=== PATIENT | male | born 1970 | race Caucasian/White ===

== ENCOUNTER → 2019-08-26 | Outpatient (CLI) | payer BC, MEDICAID ==
[~2019-08-26] MED LIST: CONRAY-43 43% 50ML VIAL (Q9960) As Ordered ONE; PROHANCE 279.3MG/ML 5ML VIAL (A9576) As Ordered ONE
--- NOTE | 2019-08-26 09:23 | REP ---
MRI lumbar spine: 08/26/2019. Indication: Low back pain. Comparison: None. Technique: Multiplanar short and long TR sequences of the lumbar spine were obtained without IV Gadolinium. Findings: Vertebral body alignment is within anatomical limits. There is a small interosseous hemangioma centrally within the T1 vertebral body. The visualized cord is unremarkable. Disc dessication and disc space narrowing are present at L1/L2, L3/L4 and L5/S1. L1/L2: Diffuse disc bulge is present without significant spinal canal or neural foraminal narrowing. L2/L3: Unremarkable. L3/L4: Diffuse disc and spur complex is present with mild spinal canal and mild to moderate bilateral neural foraminal narrowing. Mild bilateral facet arthropathy is present. L4/L5: Diffuse disc bulge is present with mild spinal canal and moderate bilateral neural foraminal narrowing. Mild bilateral facet arthropathy is present. L5/S1: Diffuse disc and spur complex is present with bilateral facet arthropathy. There is mild spinal canal narrowing. Moderate left greater than right neural foraminal narrowing is present. 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 Electronically Signed by Grey Goncalves DO 08/26/2019 09:15 A
--- NOTE | 2019-08-26 11:00 | REP ---
MR ARTHROGRAM LEFT HIP: TECHNIQUE: Coronal T1, STIR through the pelvis, post arthrogram axial T1 fat sat, T2 fat sat, coronal T1 fat sat, T2 fat sat, sagittal T1 fat sat, axial oblique T1 fat sat left hip. The visualized osseous structures demonstrate normal bone marrow signal. There is no bone marrow edema of occult fracture. There is no evidence of avascular necrosis. I do not see evidence of a labral tear. There is no paralabral cyst. Surrounding soft tissue structures of the left hip demonstrate no abnormality. Visualized intrapelvic structures are unremarkable. IMPRESSION: Negative MR arthrogram left hip. Electronically Signed by Fan Rasmussen MD 08/26/2019 11:24 A
--- NOTE | 2019-08-27 14:41 | REP ---
LEFT HIP ARTHROGRAM The procedure was performed under the direction supervision of Dr. Rasmussen. The benefits and risks including but not limited to pain, infection, bleeding and anaphylaxis were explained to the patient and informed consent was obtained. The left femoral neck was localized using fluoroscopic guidance. Skin was prepped and draped in a sterile fashion. 1% lidocaine was used as a local anesthetic. Using fluoroscopic guidance a 22 gauge spinal needle was inserted and advanced to the femoral neck. 0.5 ml of Conray 43 was injected to verify placement. 11 ml of a solution containing 20 ml of sterile saline and 0.15 ml of ProHance was injected into the joint. The needle was removed and the patient was taken to MRI for postprocedural imaging. The patient tolerated the procedure well and there were no immediate complications. Less than 6 seconds of fluoro time was utilized for this procedure. Electronically Signed by GROVER Faria 08/26/2019 05:00 P Electronically Signed by Fan Rasmussen MD 08/27/2019 02:32 P
== END ==
LOC: M RADPRO 06:42
PROVIDERS: ATTEND Physician Assistant
DX: M25.552 Pain in left hip (principal); M51.36 Other intervertebral disc degeneration, lumbar region
CPT/HCPCS: 27093; 72148; 73723; 77002; A9576; Q9960

== ENCOUNTER → 2020-06-02 | Outpatient (CLI) | payer BC, OTHER ==
[~2020-06-02] MED LIST changes: +ACET650T15 PO; -CONRAY-43 43% 50ML VIAL (Q9960) As Ordered ONE; +DICL1GEL3 TOP; +GABA600T4 PO; +OMEP20TA17 PO; -PROHANCE 279.3MG/ML 5ML VIAL (A9576) As Ordered ONE; +TRAM50TA2 PO
[2020-07-08 12:49] LABS: PLATELET COUNT, AUTOMATED 292 10^3/uL (150-450)
[2020-07-08 13:24] LABS: INR 0.99; PROTHROMBIN TIME 13.3 SECONDS (11.8-14.0)
== END ==
LOC: M LAB 11:50
PROVIDERS: ATTEND Physical Medicine & Rehabilitation
DX: R19.4 Change in bowel habit (principal)

== ENCOUNTER → 2020-06-02 | Outpatient (CLI) | payer BC, OTHER ==
[2020-07-08 16:08] LABS: BASO # 0.1 10^3/uL (0.0-0.2); EOS % 0.3 % (0.0-3.0); HEMATOCRIT 48.2 % (42.0-52.0); HEMOGLOBIN 16.1 g/dl (13.5-17.5); MEAN CORPUSCULAR HEMOGLOBIN 30.5 pg (27.0-33.0); MEAN CORPUSCULAR HGB CONC 33.4 g/dl (32.0-36.5); MEAN CORPUSCULAR VOLUME 91.3 fl (80.0-96.0); MONO # 0.6 10^3/uL (0.0-0.8); MONO % 8.9 % (0.0-5.0); NEUTROPHILS # 3.6 10^3/uL (1.5-8.5); NEUTROPHILS % 57.6 % (36.0-66.0); PLATELET COUNT, AUTOMATED 290 10^3/uL (150-450); RED BLOOD COUNT 5.28 10^6/uL (4.30-6.10); WHITE BLOOD COUNT 6.3 10^3/uL (4.0-10.0)
[2020-07-30 16:07] LABS: ALT/SGPT 58 U/L (12-78); AMYLASE 47 U/L (25-115); BILIRUBIN,TOTAL 0.3 MG/DL (0.2-1.0); BLOOD UREA NITROGEN 25 MG/DL (7-18); CALCIUM LEVEL 8.7 MG/DL (8.5-10.1); CARBON DIOXIDE LEVEL 29 MEQ/L (21-32); CHLORIDE LEVEL 107 MEQ/L (98-107); CREATININE FOR GFR 1.13 MG/DL (0.70-1.30); FREE T4 1.07 NG/DL (0.76-1.46); GLOMERULAR FILTRATION RATE > 60.0 (>56); GLUCOSE, FASTING 103 MG/DL (70-100); LIPASE 136 U/L (73-393); POTASSIUM SERUM 4.7 MEQ/L (3.5-5.1); SODIUM LEVEL 139 MEQ/L (136-145); TOTAL PROTEIN 7.4 GM/DL (6.4-8.2)
== END ==
LOC: M LAB 11:50
PROVIDERS: ATTEND Physician Assistant Medical
DX: R19.4 Change in bowel habit (principal)

== ENCOUNTER → 2020-06-08 | Outpatient (REF) | payer BC, OTHER | LOC: M LAB REF 11:47 | PROVIDERS: ATTEND Physician Assistant Medical | DX: R19.4 Change in bowel habit (principal) ==

== ENCOUNTER 2020-08-04 10:56 | Day surgery (SDC) | payer OTHER ==
[~2020-08-04] VITALS: Ht 180.3 cm; Wt 92.1 kg
[~2020-08-04 10:56] MED LIST changes: +NS 1,000 ML IV ONE
[2020-08-04] MEDS ORDERED: propofoL 200 MG/20 ML VIAL As Ordered ONE (13:45)
[2020-08-04] MEDS ORDERED: LIDOCAINE 2% 100MG/5ML SDV (FOR ANES.) As Ordered ONE (13:46)
[2020-08-04 14:35] VITALS: BP 126/78
--- NOTE | 2020-08-04 14:57 | ROOR ---
Patient Name: Sheng Sousa Procedure Date: 08/04/2020 1:37 PM Date of : 1970 Age: 49 Room: [facility] Gender: Male Note Status: Finalized Procedure: Colonoscopy Indications: Screening for colorectal malignant neoplasm Providers: Jeronimo Mills MD Referring MD: Lynnette Barksdale NP Requesting Provider: Medicines: Monitored Anesthesia Care Complications: No immediate complications. Procedure: Pre-Anesthesia Assessment: - Prior to the procedure, a History and Physical was performed, and patient medications and allergies were reviewed. The patient is competent. The risks and benefits of the procedure and the sedation options and risks were discussed with the patient. All questions were answered and informed consent was obtained. Patient identification and proposed procedure were verified by the physician, the nurse and the anesthesiologist in the procedure room. Mental Status Examination: alert and oriented. Airway Examination: normal oropharyngeal airway and neck mobility. Respiratory Examination: clear to auscultation. CV Examination: normal. Prophylactic Antibiotics: The patient does not require prophylactic antibiotics. Prior Anticoagulants: The patient has taken no previous anticoagulant or antiplatelet agents. ASA Grade Assessment: II - A patient with mild systemic disease. After reviewing the risks and benefits, the patient was deemed in satisfactory condition to undergo the procedure. The anesthesia plan was to use monitored anesthesia care (MAC). Immediately prior to administration of medications, the patient was re-assessed for adequacy to receive sedatives. The heart rate, respiratory rate, oxygen saturations, blood pressure, adequacy of pulmonary ventilation, and response to care were monitored throughout the procedure. The physical status of the patient was re-assessed after the procedure. The Colonoscope was introduced through the anus and advanced to the terminal ileum, with identification of the appendiceal orifice and IC valve. The colonoscopy was performed without difficulty. The patient tolerated the procedure well. The quality of the bowel preparation was good. The terminal ileum, ileocecal valve, appendiceal orifice, and rectum were photographed. Scope insertion time was 3 minutes. Scope withdrawal time was 9 minutes. The total duration of the procedure was 15 minutes. Findings: The perianal and digital rectal examinations were normal. The terminal ileum appeared normal. A 15 mm polyp was found in the transverse colon. The polyp was sessile. The polyp was removed with a hot snare. Resection and retrieval were complete. To close a defect after polypectomy, one hemostatic clip was successfully placed. There was no bleeding at the end of the procedure. Multiple small and large-mouthed diverticula were found in the sigmoid colon. There was no evidence of diverticular bleeding. Non-bleeding external and internal hemorrhoids were found during retroflexion. The hemorrhoids were medium-sized. Impression: - The examined portion of the ileum was normal. - One 15 mm polyp in the transverse colon, removed with a hot snare. Resected and retrieved. Clip was placed. - Moderate diverticulosis in the sigmoid colon. There was no evidence of diverticular bleeding. - Non-bleeding external and internal hemorrhoids. Recommendation: - Patient has a contact number available for emergencies. The signs and symptoms of potential delayed complications were discussed with the patient. Return to normal activities tomorrow. Written discharge instructions were provided to the patient. - High fiber diet. - Continue present medications. - Await pathology results. - Repeat colonoscopy in 3 years for surveillance based on pathology results. - Telephone GI clinic for pathology results in 2 weeks. - Return to primary care physician. Jeronimo Mills MD Jeronimo Mills MD 08/04/2020 2:56:28 PM Electronically signed by Jeronimo Mills MD Number of Addenda: 0 Note Initiated On: 08/04/2020 1:37 PM Estimated Blood Loss: Estimated blood loss was minimal.
== END 2020-08-04 15:10 | disposition home or self-care (01) ==
LOC: M OPP 10:56
PROVIDERS: ATTEND Internal Medicine Gastroenterology
DX: Z12.11 Encounter for screening for malignant neoplasm of colon (principal); R19.4 Change in bowel habit; D12.3 Benign neoplasm of transverse colon; K57.30 Diverticulosis of large intestine without perforation or abscess without bleeding; K64.8 Other hemorrhoids; Z79.891 Long term (current) use of opiate analgesic; Z79.899 Other long term (current) drug therapy; Z80.3 Family history of malignant neoplasm of breast

== ENCOUNTER → 2020-08-25 | Outpatient (CLI) | payer OTHER ==
[~2020-08-25] MED LIST changes: +E-Z-GAS II EFFERVESCENT PACKET (SODIUM BICARB./CITRIC ACID/SIMETHICONE) As Ordered ONE; +E-Z-HD 98% w/w 340GM SUSP BTL As Ordered ONE; +E-Z-PAQUE 96% w/w SUSP 176GM BTL As Ordered ONE; -NS 1,000 ML IV ONE
--- NOTE | 2020-08-25 17:33 | REP ---
INDICATION: CHEST PAIN; PT AT FILE RM. COMPARISON: None. TECHNIQUE: The procedure was performed under the direct supervision of Dr. Rasmussen. The images were reviewed with Dr. Rasmussen. The construction flagger film shows no organomegaly or pathological masses. The intestinal gas pattern is non-specific. There is a metallic density over lying the left abdomen. Liquid barium and gas producing crystals were given in the erect position as well as liquid barium in the prone oblique position in order to perform a double contrast upper GI examination. . FINDINGS: The oral and pharyngeal stages of deglutition are unremarkable. During esophageal transported there are tertiary waves demonstrated. There is no esophagitis stricture or mucosal ring. There is a sliding-type hiatal hernia. There is gastroesophageal reflux demonstrated to the level of the thoracic inlet. The stomach norris are normally outlined. The rugal folds are smooth and regular. There is no gastritis neoplasm or ulcer disease. In the duodenum there are thickened folds which may represent duodenitis. There is no kia ulcer identified. The visualized portion of the proximal small bowel appears normal in course and caliber. IMPRESSION: 1. Tertiary waves. 2. There is a sliding-type hiatal hernia. There is gastroesophageal reflux demonstrated to the level of the thoracic inlet. 3. There are thickened folds in the duodenum which may represent duodenitis. There is no kia ulcer identified. 1.4 minutes of fluoro time was utilized for this procedure <Electronically signed by Garry Villarreal > 08/25/20 1643 <Electronically signed by Fan Rasmussen > 08/25/20 2053
== END ==
LOC: M RAD 07:58
PROVIDERS: ATTEND Physician Assistant Medical
DX: R07.9 Chest pain, unspecified (principal)

== ENCOUNTER → 2020-09-24 | Outpatient (CLI) | payer OTHER ==
[~2020-09-24] MED LIST changes: -E-Z-GAS II EFFERVESCENT PACKET (SODIUM BICARB./CITRIC ACID/SIMETHICONE) As Ordered ONE; -E-Z-HD 98% w/w 340GM SUSP BTL As Ordered ONE; -E-Z-PAQUE 96% w/w SUSP 176GM BTL As Ordered ONE; +OMEP-221
== END ==
LOC: M LABSMTC 11:42
PROVIDERS: ATTEND Anesthesiology
DX: Z01.812 Encounter for preprocedural laboratory examination (principal); Z20.828 Contact with and (suspected) exposure to other viral communicable diseases

== ENCOUNTER → 2020-09-25 | Outpatient (CLI) | payer OTHER | LOC: M LABSMTC 10:16 | PROVIDERS: ATTEND Physical Medicine & Rehabilitation | DX: Z01.812 Encounter for preprocedural laboratory examination (principal); Z20.828 Contact with and (suspected) exposure to other viral communicable diseases ==

== ENCOUNTER 2020-09-29 12:20 | Day surgery (SDC) | payer OTHER ==
[~2020-09-29] VITALS: Ht 180.3 cm; Wt 95.3 kg
[~2020-09-29 12:20] MED LIST changes: +NS 1,000 ML IV ONE
[2020-09-29] MEDS ORDERED: propofoL 200 MG/20 ML VIAL As Ordered ONE ×2 (14:31→15:40)
[2020-09-29] MEDS ORDERED: LIDOCAINE 2% 100MG/5ML SDV (FOR ANES.) As Ordered ONE (14:31)
[2020-09-29] MEDS ORDERED: fentaNYL 100 MCG/2 ML INJECTION (J3010) As Ordered ONE (14:31)
--- NOTE | 2020-09-29 16:05 | ROOR ---
Patient Name: Sheng Sousa Procedure Date: 09/29/2020 3:36 PM Date of : 1970 Age: 49 Room: [facility] Gender: Male Note Status: Finalized Procedure: Upper GI endoscopy Indications: Abnormal UGI series Providers: Jeronimo Mills MD Referring MD: Lynnette Barksdale NP Requesting Provider: Medicines: Monitored Anesthesia Care Complications: No immediate complications. Procedure: Pre-Anesthesia Assessment: - Prior to the procedure, a History and Physical was performed, and patient medications and allergies were reviewed. The patient is competent. The risks and benefits of the procedure and the sedation options and risks were discussed with the patient. All questions were answered and informed consent was obtained. Patient identification and proposed procedure were verified by the physician, the nurse and the anesthesiologist in the procedure room. Mental Status Examination: alert and oriented. Airway Examination: normal oropharyngeal airway and neck mobility. Respiratory Examination: clear to auscultation. CV Examination: normal. Prophylactic Antibiotics: The patient does not require prophylactic antibiotics. Prior Anticoagulants: The patient has taken no previous anticoagulant or antiplatelet agents. ASA Grade Assessment: II - A patient with mild systemic disease. After reviewing the risks and benefits, the patient was deemed in satisfactory condition to undergo the procedure. The anesthesia plan was to use monitored anesthesia care (MAC). Immediately prior to administration of medications, the patient was re-assessed for adequacy to receive sedatives. The heart rate, respiratory rate, oxygen saturations, blood pressure, adequacy of pulmonary ventilation, and response to care were monitored throughout the procedure. The physical status of the patient was re-assessed after the procedure. The Endoscope was introduced through the mouth, and advanced to the second part of duodenum. The upper GI endoscopy was accomplished without difficulty. The patient tolerated the procedure well. Findings: LA Grade A (one or more mucosal breaks less than 5 mm, not extending between tops of 2 mucosal folds) esophagitis with no bleeding was found in the distal esophagus. Biopsies were taken with a cold forceps for histology. Verification of patient identification for the specimen was done by the physician and nurse using the patient's name, date and medical record number. Estimated blood loss was minimal. Scattered moderate inflammation characterized by erythema and granularity was found in the gastric antrum. Biopsies were taken with a cold forceps for Helicobacter pylori testing. Estimated blood loss was minimal. Diffuse mildly erythematous mucosa without active bleeding and with no stigmata of bleeding was found in the duodenal bulb and in the second portion of the duodenum. Biopsies for histology were taken with a cold forceps for evaluation of celiac disease. Impression: - LA Grade A reflux esophagitis. Rule out Duong's esophagus. Biopsied. - Gastritis. Biopsied. - Erythematous duodenopathy. Biopsied. Recommendation: - Patient has a contact number available for emergencies. The signs and symptoms of potential delayed complications were discussed with the patient. Return to normal activities tomorrow. Written discharge instructions were provided to the patient. - High fiber diet. - Continue present medications. - Use Prilosec (omeprazole) 40 mg PO daily for 8 weeks. - Follow an antireflux regimen. - Await pathology results. - Telephone GI clinic for pathology results in 2 weeks. - Return to primary care physician. Procedure Code(s): --- Professional --- 42212, Esophagogastroduodenoscopy, flexible, transoral; with biopsy, single or multiple Diagnosis Code(s): --- Professional --- K21.0, Gastro-esophageal reflux disease with esophagitis K29.70, Gastritis, unspecified, without bleeding K31.89, Other diseases of stomach and duodenum R93.3, Abnormal findings on diagnostic imaging of other parts of digestive tract CPT copyright 2019 [employer] [employer]. All rights reserved. The codes documented in this report are preliminary and upon rubber off review may be revised to meet current compliance requirements. Jeronimo Mills MD Jeronimo Mills MD 09/29/2020 4:05:17 PM Electronically signed by Jeronimo Mills MD Number of Addenda: 0 Note Initiated On: 09/29/2020 3:36 PM Estimated Blood Loss: Estimated blood loss was minimal.
[2020-09-29 16:15] VITALS: BP 138/81
== END 2020-09-29 16:21 | disposition home or self-care (01) ==
LOC: M OPP 12:20
PROVIDERS: ATTEND Internal Medicine Gastroenterology
DX: K21.00 Gastro-esophageal reflux disease with esophagitis, without bleeding (principal); K29.70 Gastritis, unspecified, without bleeding; K31.89 Other diseases of stomach and duodenum; R93.3 Abnormal findings on diagnostic imaging of other parts of digestive tract; Z79.891 Long term (current) use of opiate analgesic; Z79.899 Other long term (current) drug therapy; Z87.891 Personal history of nicotine dependence
CPT/HCPCS: 43239; 88305; J3010

== ENCOUNTER → 2021-09-13 | Outpatient (CLI) | payer OTHER ==
[~2021-09-13] MED LIST changes: -NS 1,000 ML IV ONE
[2021-09-13 18:09] LABS: BLOOD UREA NITROGEN 18 MG/DL (7-18); C REACTIVE PROTEIN QUANTITATIV < 0.30 MG/DL (0.00-0.30)
== END ==
LOC: M LAB 17:18
PROVIDERS: ATTEND Physician Assistant Surgical
DX: M51.37 Other intervertebral disc degeneration, lumbosacral region (principal)

== ENCOUNTER → 2021-09-18 | Outpatient (CLI) | payer OTHER ==
[2021-09-18 19:39] LABS: PLATELET COUNT, AUTOMATED 284 10^3/uL (150-450)
[2021-09-18 19:54] LABS: INR 0.92; PROTHROMBIN TIME 12.8 SECONDS (12.7-14.5)
[2021-09-18 19:55] LABS: PARTIAL THROMBOPLASTIN TIME 29.6 SECONDS (25.9-37.0)
[2021-09-18 20:04] LABS: COLLAGEN EPINEPHRINE 107 SECONDS (74-162)
== END ==
LOC: M LAB 17:38
PROVIDERS: ATTEND Physician Assistant Surgical
DX: M53.3 Sacrococcygeal disorders, not elsewhere classified (principal)

== ENCOUNTER → 2021-10-16 | Outpatient (CLI) | payer OTHER ==
--- NOTE | 2021-10-16 11:43 | REP ---
INDICATION: DISC DEGENERATION LUMBOSACRAL REGION. COMPARISON: None. TECHNIQUE: 3T multiplanar MRI imaging of the sacroiliac joints was obtained using various sequences. FINDINGS: There is anterior osteophytosis of the midportion of each SI joint. There is mild patchy T2 hyper signal seen on the sacral side of each SI joint at the level of the osteophytosis. Minimal patchy T2 hyper signal is seen on the iliac side of the inferior left SI joint. The SI joints are non fused and there is no abnormal SI joint fluid. There is no evidence of a mass or mass effect. The cortical and marrow signal seen throughout the remainder of the examination is within normal limits. IMPRESSION: Findings, as described above, consistent with chronic degenerative SI joint changes with mild edema suggesting possible acute sacroiliitis superimposed upon chronic changes. <Electronically signed by Chuy Meadows > 10/16/21 1117
== END ==
LOC: M PLAIMG 10:03
PROVIDERS: ATTEND Physician Assistant Surgical
DX: M51.37 Other intervertebral disc degeneration, lumbosacral region (principal)

== ENCOUNTER → 2022-01-23 | Outpatient (CLI) | payer OTHER ==
[~2022-01-23] MED LIST changes: -OMEP-221; +OMEP40CA5
== END ==
LOC: M LAB 17:46
PROVIDERS: ATTEND Physical Medicine & Rehabilitation
DX: M51.36 Other intervertebral disc degeneration, lumbar region (principal)

== ENCOUNTER → 2022-02-23 | Outpatient (CLI) | payer OTHER | LOC: M PLAIMG 08:38 | PROVIDERS: ATTEND Physician Assistant Surgical | DX: M51.36 Other intervertebral disc degeneration, lumbar region (principal); M48.061 Spinal stenosis, lumbar region without neurogenic claudication ==

== ENCOUNTER → 2022-04-12 | Outpatient (CLI) | payer OTHER ==
[2022-04-12 18:32] LABS: BASO # 0.1 10^3/uL (0.0-0.2); BASO % 0.6 % (0.0-1.0); EOS # 0.1 10^3/uL (0.0-0.5); EOS % 0.8 % (0.0-3.0); HEMATOCRIT 42.7 % (42.0-52.0); HEMOGLOBIN 14.7 g/dl (13.5-17.5); LYMPH # 2.6 10^3/uL (1.5-5.0); LYMPH % 32.7 % (24.0-44.0); MEAN CORPUSCULAR HEMOGLOBIN 31.4 pg (27.0-33.0); MEAN CORPUSCULAR HGB CONC 34.4 g/dl (32.0-36.5); MEAN CORPUSCULAR VOLUME 91.2 fl (80.0-96.0); MONO # 0.7 10^3/uL (0.0-0.8); NEUTROPHILS # 4.5 10^3/uL (1.5-8.5); NEUTROPHILS % 56.6 % (36.0-66.0); PLATELET COUNT, AUTOMATED 242 10^3/uL (150-450); RED BLOOD COUNT 4.68 10^6/uL (4.30-6.10); WHITE BLOOD COUNT 7.9 10^3/uL (4.0-10.0)
[2022-04-12 18:57] LABS: ALBUMIN 3.9 GM/DL (3.2-5.2); ALT/SGPT 26 U/L (12-78); BILIRUBIN,TOTAL 0.4 MG/DL (0.2-1.0); BLOOD UREA NITROGEN 18 MG/DL (7-18); CALCIUM LEVEL 9.4 MG/DL (8.5-10.1); CARBON DIOXIDE LEVEL 26 MEQ/L (21-32); CHLORIDE LEVEL 109 MEQ/L (98-107); CHOLESTEROL LEVEL 207 MG/DL (<200); CHOLESTEROL RISK RATIO 5.914 (<5); CREATININE FOR GFR 1.08 MG/DL (0.70-1.30); GLOMERULAR FILTRATION RATE > 60.0 (>56); GLUCOSE, FASTING 91 MG/DL (70-100); HDL CHOLESTEROL 35 MG/DL (>40); LDL CHOLESTEROL 99 MG/DL (<100); NON-HDL-C 172 MG/DL; POTASSIUM SERUM 4.2 MEQ/L (3.5-5.1); SODIUM LEVEL 142 MEQ/L (136-145); THYROID STIMULATING HORMONE 0.485 uIU/ML (0.358-3.740); TOTAL 25(OH) VITAMIN D 29.1 NG/ML (30.0-100.0); TRIGLYCERIDES LEVEL 363 MG/DL (<150)
== END ==
LOC: M LAB 17:46
PROVIDERS: ATTEND Nurse Practitioner Family
DX: E55.9 Vitamin D deficiency, unspecified (principal); E66.3 Overweight; M51.34 Other intervertebral disc degeneration, thoracic region; R39.15 Urgency of urination

== ENCOUNTER → 2022-08-20 | Outpatient (CLI) | payer OTHER ==
[2022-08-20 18:42] LABS: PLATELET COUNT, AUTOMATED 258 10^3/uL (150-450)
[2022-08-20 18:51] LABS: COLLAGEN EPINEPHRINE 110 SECONDS (74-162)
[2022-08-20 18:52] LABS: INR 1.01; PROTHROMBIN TIME 13.5 SECONDS (12.5-14.5)
[2022-08-20 18:53] LABS: PARTIAL THROMBOPLASTIN TIME 28.6 SECONDS (24.8-34.2)
== END ==
LOC: M LAB 17:28
PROVIDERS: ATTEND Physical Medicine & Rehabilitation
DX: M51.16 Intervertebral disc disorders with radiculopathy, lumbar region (principal)

== ENCOUNTER → 2022-08-20 | Outpatient (CLI) | payer OTHER ==
[2022-08-20 19:30] LABS: CHOLESTEROL RISK RATIO 3.261 (<5)
== END ==
LOC: M LAB 17:32
PROVIDERS: ATTEND Nurse Practitioner Family
DX: E66.3 Overweight (principal); Z83.42 Family history of familial hypercholesterolemia

== ENCOUNTER 2022-08-24 07:09 | Emergency (ER) | payer OTHER ==
[~2022-08-24] VITALS: Ht 180.3 cm; Wt 93.4 kg
[2022-08-24 07:10] VITALS: BP 129/84
[2022-08-24] MEDS ORDERED: ATOR1TAB21 (07:20)
[2022-08-24] MEDS ORDERED: APAP325T4 PO (07:20)
[2022-08-24] MEDS ORDERED: OMEP-173 (07:20)
[2022-08-24] MEDS ORDERED: DICL1GEL3 TOP (07:21)
[2022-08-24] MEDS ORDERED: MELO10CA2 PO (08:57)
== END 2022-08-24 09:12 | disposition home or self-care (01) ==
LOC: M ED 07:09
DX: M76.52 Patellar tendinitis, left knee (principal); Z87.891 Personal history of nicotine dependence; Z79.899 Other long term (current) drug therapy